=== PATIENT | female | born 1985 | race Caucasian/White ===

== ENCOUNTER 2020-06-19 16:21 | Emergency (ER) | payer OTHER ==
[~2020-06-19 16:21] MED LIST: IBUPROFEN600 MG PO; KEFLEX500 MG PO; PENVEE K 500 M500 MG PO; PRENATAL TABLE1 EAC1 PO; SUBUTEX 8 MG TAB8 MG SL; ZYRTEC10 MG PO
[2020-06-19 17:16] LABS: HEMOGLOBIN 13.2 gm/dl (12.3-15.3); RED BLOOD COUNT 4.49 M/UL (4.00-5.10); WHITE BLOOD COUNT 10.7 K/UL (4.5-11.0)
[2020-06-19 17:34] LABS: BUN/CREATININE RATIO 12 (0-10)
== END 2020-06-19 19:39 | disposition home or self-care (01) ==
LOC: ER1 16:21
PROVIDERS: Family Medicine
DX: B89 Unspecified parasitic disease (principal); H53.8 Other visual disturbances; R63.4 Abnormal weight loss; F17.210 Nicotine dependence, cigarettes, uncomplicated; Z79.899 Other long term (current) drug therapy
CPT/HCPCS: 80053; 84439; 84443; 85025; 86140; 99284

== ENCOUNTER 2021-03-04 04:50 | Inpatient (IN) | payer OTHER ==
[2021-03-04 06:38] LABS: HEMOGLOBIN 10.8 gm/dl (12.3-15.3); RED BLOOD COUNT 4.24 M/UL (4.00-5.10); WHITE BLOOD COUNT 10.4 K/UL (4.5-11.0)
[2021-03-04] MEDS ORDERED: FERROUS SULFAT325 MG PO (19:10)
[2021-03-04] MEDS ORDERED: DOCUSATE SODIU100 MG PO (19:10)
[2021-03-04] MEDS ORDERED: IBUPROFEN600 MG PO (19:10)
[2021-03-05 10:49] LABS: HEMOGLOBIN 10.6 gm/dl (12.3-15.3)
== END 2021-03-07 13:28 | disposition home or self-care (01) | DRG 806 ==
LOC: OB 04:50
PROVIDERS: Obstetrics & Gynecology; ADMIT Obstetrics & Gynecology
PROC: 10E0XZZ Delivery of Products of Conception, External Approach (ICD-10-PCS; principal; 2021-03-04)
PROC: 10H07YZ Insertion of Other Device into Products of Conception, Via Natural or Artificial Opening (ICD-10-PCS; 2021-03-04)
PROC: 3E033VJ Introduction of Other Hormone into Peripheral Vein, Percutaneous Approach (ICD-10-PCS; 2021-03-04)
PROC: 10907ZC Drainage of Amniotic Fluid, Therapeutic from Products of Conception, Via Natural or Artificial Opening (ICD-10-PCS; 2021-03-04)
PROC: 0HQ9XZZ Repair Perineum Skin, External Approach (ICD-10-PCS; 2021-03-04)
PROC: 4A1H7CZ Monitoring of Products of Conception, Cardiac Rate, Via Natural or Artificial Opening (ICD-10-PCS; 2021-03-04)
PROC: 10H073Z Insertion of Monitoring Electrode into Products of Conception, Via Natural or Artificial Opening (ICD-10-PCS; 2021-03-04)
DX: O98.42 Viral hepatitis complicating childbirth (principal); O99.324 Drug use complicating childbirth; Z37.0 Single live birth; F11.20 Opioid dependence, uncomplicated; B19.20 Unspecified viral hepatitis C without hepatic coma; F19.10 Other psychoactive substance abuse, uncomplicated; Z20.822 Contact with and (suspected) exposure to COVID-19; O99.344 Other mental disorders complicating childbirth; O99.334 Smoking (tobacco) complicating childbirth; F17.200 Nicotine dependence, unspecified, uncomplicated; O70.0 First degree perineal laceration during delivery; O99.52 Diseases of the respiratory system complicating childbirth; J30.2 Other seasonal allergic rhinitis; F41.1 Generalized anxiety disorder; F32.A Depression, unspecified; Z3A.39 39 weeks gestation of pregnancy
CPT/HCPCS: 36415; 51702; 80307; 81001; 85014; 85018; 85025; J2590; J3430; J7120

== ENCOUNTER → 2021-10-13 | Outpatient (CLI) | payer OTHER ==
[~2021-10-13] MED LIST changes: +DOCUSATE SODIU100 MG PO; +FERROUS SULFAT325 MG PO
[2021-10-13 10:47] LABS: HEMOGLOBIN 12.6 gm/dl (12.3-15.3); RED BLOOD COUNT 4.36 M/UL (4.00-5.10); WHITE BLOOD COUNT 8.7 K/UL (4.5-11.0)
[2021-10-13 11:12] LABS: BUN/CREATININE RATIO 25 (0-10)
[2021-10-14 07:11] LABS: HIV AB/P24 AG SCREEN Non Reactive (Non Reactive); VITAMIN D, 25-HYDROXY 26.8 ng/mL (30.0-100.0)
[2021-10-14 08:14] LABS: THYROXINE (T4) 8.8 ug/dL (4.5-12.0)
[2021-10-15 22:07] LABS: QUANTIFERON MITOGEN VALUE >10.00 IU/mL (.); QUANTIFERON NIL VALUE 0.02 IU/mL (.); QUANTIFERON TB1 AG VALUE 0.02 IU/mL (.); QUANTIFERON TB2 AG VALUE 0.02 IU/mL (.); QUANTIFERON-TB GOLD PLUS Negative (Negative)
[2021-10-17 20:11] LABS: HBSAG SCREEN Negative (Negative); HCV AB >11.0 (0.0-0.9); HCV LOG10 6.427 (.); HEP A AB, IGM Negative (Negative); HEP B CORE AB, IGM Negative (Negative); HEPATITIS C QUANTITATION 2670000 IU/mL (.)
== END ==
LOC: LAB 09:39
PROVIDERS: Obstetrics & Gynecology
DX: Z13.228 Encounter for screening for other metabolic disorders (principal); Z11.59 Encounter for screening for other viral diseases; Z11.4 Encounter for screening for human immunodeficiency virus [HIV]; D51.9 Vitamin B12 deficiency anemia, unspecified; E78.00 Pure hypercholesterolemia, unspecified; E55.9 Vitamin D deficiency, unspecified; E61.1 Iron deficiency; R76.12 Nonspecific reaction to cell mediated immunity measurement of gamma interferon antigen response without active tuberculosis; R94.6 Abnormal results of thyroid function studies; R97.8 Other abnormal tumor markers; R73.09 Other abnormal glucose
CPT/HCPCS: 36415; 80053; 80061; 80074; 82607; 82728; 83036; 83540; 84436; 84443; 84481; 85025; 86780; 87389